=== PATIENT | female | born 1980 | race Hispanic/Latino ===

== ENCOUNTER 2016-07-06 15:26 | Emergency (ER) | payer OTHER ==
[~2016-07-06] VITALS: Ht 152.4 cm; Wt 81.8 kg
[2016-07-06 15:29] VITALS: BP 149/109; PULSE 99; RESP 17; O2SAT 97
[2016-07-06 16:25] LABS: BASOPHILS % (AUTO) 0.2 % (0-3); EOSINOPHILS % (AUTO) 1.8 % (0-5); Mean Corpuscular Hemoglobin 27.7 pg (27.0-35.0); Mean Corpuscular Volume 82.6 fL (81-100); NEUTROPHILS % (AUTO) 61.1 % (40-74); Platelet Count 221 bil/L (150-400)
[2016-07-06] MEDS ORDERED: 0.9% Sodium Chloride 1,000 ML IV ONE (16:50)
[2016-07-06] MEDS ORDERED: Ondansetron 2 mg/mL 2 mL Inj IVPUSH ONE (16:50)
--- NOTE | 2016-07-06 16:50 | ED.REPORT ---
HPI-General Illness Date of Service Jul 06, 2016 ED Provider: Librado Emerson MD 35 year old female presents to the ER accompanied by her daughters due to multiple medical complaints. Symptoms onset 5 days ago with sore throat, and severe headache. The next day she began experiencing nasal congestion, cough, and pleuritic pain. She stayed home from work the following day, and began feeling confused. Yesterday she started nausea, vomiting, and diarrhea. Associated symptom of "bloated" abdominal pain. She denies dysuria. 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 Recently coworkers have been sick with nausea, vomiting, and diarrhea. Last menstrual period was 2-3 days ago. Nursing Notes Stated Complaint: VOMITING,DIARRHEA,HEADACHE, AND CHEST PAIN Chief Complaint: Female Abdominal Pain Nursing Notes Reviewed: Yes Allergies: Coded Allergies: No Known Allergies (Verified , 07/06/16) Scheduled Loperamide (Loperamide) 2 Mg Capsule 2 MG PO Q4H Scheduled PRN Ibuprofen (Ibuprofen) 600 Mg Tablet 600 MG PO QID PRN PRN For Pain Ondansetron ODT (Zofran ODT) 4 Mg Tablet 4 MG PO Q4H PRN PRN For Nausea General Time Seen by MD: 16:48 Chief Complaint Multip medical complaints Hx Obtained From: Patient Arrived By: Walk-in Sudden in Onset?: No Onset Occurred: 5 days ago Symptom Duration: Since onset Location: : Abdomen Quality: Pressure Severity: Current: Moderate Severity: Maximum: Moderate Associated with: Reports: Congestion, Cough, Fever, Headache, Nausea, Vomiting Similar Sx Previous: No Past Medical History Past Medical History none reported Past Surgical History none reported Smoking History Never Smoker Social History Alcohol Use: Denies alcohol use Drug Use: Denies drug use Ambulatory Status Independent Review of Systems Full Review of Systems Constitutional: Reports: Chills, Fever Ears / Nose / Throat: Reports: Nasal congestion, Sore throat Respiratory: Reports: Non-productive cough, Pleuritic pain Cardiovascular: Denies: Chest pain GI: Reports: Abdominal pain, Diarrhea, Nausea, Vomiting, Denies: Constipation Female: Denies: Dysuria, Musculoskeletal: Denies: Back pain, Neck pain Neurologic: Reports: Confusion, Headache Complete sys rev & neg: except as marked. Physical Exam Vital Signs Vital Signs Date Time Temp Pulse Resp B/P Pulse Ox O2 Delivery O2 Flow Rate FiO2 07/06/16 18:34 74 22 118/64 96 Room Air 07/06/16 15:29 36.3 99 17 149/109 97 Room Air Initial VS: Reviewed Head / Eyes: Atraumatic, Normocephalic Neck: Supple, Non-tender, Full range of motion Abdomen / GI: Soft, Non-tender, No guarding, No rebound, No distention Extremities: Vascular intact, Neuro intact, No swelling, No tenderness Skin: Warm, Dry, No cyanosis Neurologic: Alert, Oriented, Nonfocal General/Constitutional: Awake, Alert, Well developed, Well nourished ENT: Airway patent, Mucous membranes moist, Pharynx NL Respiratory / Chest: Breath sounds NL, No respiratory distress, No rales, No rhonchi, No wheezing Cardiovascular: Heart rate NL, Regular rhythm, Heart sounds NL, Cap refill not delayed, Peripheral circulation NL Interpretation & Diagnostics Lab Results Interpretation Result Diagram: 07/06/16 1608 07/06/16 1608 Test 07/06/16 16:08 07/06/16 18:15 White Blood Count 5.5th/mm3 (3.8-10.1) Red Blood Count 5.05mil/mm3 (3.90-5.20) Hemoglobin 14.0g/dL (12.0-15.6) Hematocrit 41.7% (35.0-46.0) Mean Corpuscular Volume 82.6fL (81-100) Mean Corpuscular Hemoglobin 27.7pg (27.0-35.0) Mean Corpuscular Hemoglobin Concent 33.6% (32.0-37.0) Red Cell Distribution Width 13.1% (12.3-15.4) Platelet Count 221bil/L (150-400) Neutrophils (%) (Auto) 61.1% (40-74) Lymphocytes (%) (Auto) 23.7% (14-46) Monocytes (%) (Auto) 13.0% (4-12) Eosinophils (%) (Auto) 1.8% (0-5) Basophils (%) (Auto) 0.2% (0-3) Sodium Level 138mEq/L (134-144) Potassium Level 3.4mEq/L (3.5-5.2) Chloride Level 99mEq/L (97-108) Carbon Dioxide Level 26mmol/L (18-29) Blood Urea Nitrogen 10mg/dL (6-20) Creatinine 0.61mg/dL (0.57-1.00) Estimat Glomerular Filtration Rate 159mL/min (>59) Glucose Level 90mg/dL (60-99) Calcium Level 8.7mg/dL (8.5-10.1) Magnesium Level 2.0mg/dL (1.6-2.6) Total Bilirubin 0.4mg/dL (0.0-1.2) Aspartate Amino Transf (AST/SGOT) 18U/L (0-50) Alanine Aminotransferase (ALT/SGPT) 19U/L (0-32) Alkaline Phosphatase 96U/L (25-150) Total Protein 7.4g/dL (6.4-8.4) Albumin 4.0g/dL (3.4-5.0) Lipase 25U/L (13-60) Hold Chavez Top Tube Received (Received) Hold Urine Received (Received) Re-Eval/Medical Decision Med Decision/Clinical Course Patient is a generally healthy 35-year-old female who presents with constellation of symptoms including headache, aches, pains, fevers, congestion and abdominal cramping in the setting of being exposed to multiple coworkers with similar flulike illness. Here in the emergency department the patient is afebrile stable vital signs and in no apparent distress. Laboratory studies notable as below:n CBC normal CMP normal UA negative, not . She was treated with Zofran, IV fluids and Toradol. She reported significant symptomatic improvement. Abdominal examination is benign. No evidence of pneumonia and lungs clear. Patient nontoxic in appearance. Presentation was consistent with flulike illness. Patient advised to do supportive care and rest. At this time, I see no indication for further workup or admission. She will follow up closely with her primary care physician. Following up and return precautions were reviewed detail the patient was discharged in good condition. Source of Hx: Old records Time of Eval: 18:24 Re-Evaluation/Progress Note: Discussed lab results and plan to discharge. Patient understands and agrees to the plan. Return precautions given. All other questions addressed. Counseled Regarding: Diagnosis, Lab results, Need for follow-up, When/why to return to ED Discharge & Departure Primary Impression: Gastroenteritis Additional Impressions: Flu-like symptoms Headache Headache type: unspecified Headache chronicity pattern: unspecified pattern Intractability: not intractable Qualified Code: R51 - Headache Myalgia Disposition: Home Discharge Condition All VS Reviewed: Yes Condition: Stable Patient Instructions: Gastroenteritis (ED) Additional Instructions: Thank you for seeking care at emergency room. It is difficult for us to make definitive diagnoses in the ED but we believe that you are experiencing gastroenteritis. Our primary goal today in the ED was to evaluate you for any life-threatening conditions. Your evaluation was reassuring. You will be discharged with prescriptions for Zofran, ibuprofen, and loperamide. Please take these as directed. You should follow-up with your primary doctor next week. You should return to the ED immediately if you develop worsening symptoms, chest pain, shortness of breath, weakness/numbness/tingling, or any other concerning symptoms. Thank you for letting us partake in your care today. Referrals: [facility] (PCP) Ab Attestation Portions of this note were transcribed by Indio Byers. I, Dr. Emerson, personally performed the history, physical exam and medical decision-making; I reviewed and confirmed the accuracy of the information in the transcribed note. Signed by: Ab Caceres, 07/06/2016 and 18:25 copies to: [facility] Librado Emerson MD Jul 06, 2016 16:50 INDIO BYERS Jul 06, 2016 16:54
[2016-07-06] MEDS ORDERED: Ketorolac 15 mg/mL Inj IVPUSH ONE (18:00)
[2016-07-06] MEDS ORDERED: ONDA4TAB9 PO (18:01)
[2016-07-06] MEDS ORDERED: IBUP-1827 PO (18:01)
[2016-07-06] MEDS ORDERED: LOPE2CAP PO (18:01)
[2016-07-06 18:34] VITALS: BP 118/64; PULSE 74; RESP 22; O2SAT 96
== END 2016-07-06 18:35 | disposition home or self-care (01) ==
LOC: SED 15:26
DX: K52.9 Noninfective gastroenteritis and colitis, unspecified (principal); R51 Headache; M79.1 Myalgia; R09.81 Nasal congestion; R05 Cough; R07.1 Chest pain on breathing
CPT/HCPCS: 36415; 80053; 81025; 83690; 83735; 85025; 87804; 96374; 96375; 99284; J1885; J2405; J7030